=== PATIENT | female | born 1960 | race Caucasian/White ===

== ENCOUNTER 2017-06-03 14:04 | Emergency (ER) | payer BC ==
[~2017-06-03] VITALS: Ht 160 cm; Wt 49.9 kg
[2017-06-03] MEDS ORDERED: VALIUM5 MG PO (14:14)
[2017-06-03] MEDS ORDERED: LAMICTAL100 MG PO (14:14)
[2017-06-03] MEDS ORDERED: DIAZEPAM 5 MG5 M1 PO (14:14)
[2017-06-03 15:29] VITALS: BP 115/60
== END 2017-06-03 15:30 | disposition home or self-care (01) ==
LOC: M.ERS 14:04
DX: L76.82 Other postprocedural complications of skin and subcutaneous tissue (principal); F32.9 Major depressive disorder, single episode, unspecified; Y83.8 Other surgical procedures as the cause of abnormal reaction of the patient, or of later complication, without mention of misadventure at the time of the procedure; Y92.89 Other specified places as the place of occurrence of the external cause